=== PATIENT | male | born 1990 | race African-American/Black ===

== ENCOUNTER 2018-12-28 15:27 | Emergency (ER) | payer MEDICAID ==
--- NOTE | 2018-12-28 15:34 | EDPHY ---
H & P Time Seen by Provider: 12/28/18 15:30 HPI/ROS: CHIEF COMPLAINT: Altered mental status HISTORY OF PRESENT ILLNESS: Per EMS the patient's friends called because he was altered. He admits to drinking a pt of alcohol. His pre-hospital glucose was 122. Patient denies any medical complaints now although he is very slow to respond and appears lethargic. No history of trauma pre-hospital. Further history and review of systems unable on arrival because of the patient' s lethargy. PAST MEDICAL HISTORY: Schizophrenia Social history: Recent alcohol General Appearance: Alert and opens eyes spontaneously but slow to respond. Eyes: No scleral icterus. Pupils equal reactive extraocular motion intact. ENT, Mouth: No tongue laceration or abrasion. Respiratory: Normal respiratory effort, breath sounds equal, lungs are clear to auscultation. Cardiovascular: Regular rate and rhythm. Gastrointestinal: Abdomen is soft and non tender. Neurological: Spontaneous movement of all 4 extremities but limited verbal communication. Face symmetric. Skin: Warm and dry, no rashes. No external evidence of bruising or abrasion or laceration. Musculoskeletal: No neck stiffness. Psychiatric: Not agitated. Emergency Department course/MDM: Plan for labs to include ethanol and sodium, pre-hospital glucose was normal, serial examinations. Patient got diaphoretic and tachycardic was given 2 mg IV Ativan and normal saline hydration. Now more alert, able to answer questions, no medical complaints except for anxiety at this time. Admits to chronic benzodiazepine use. 2230: Heart rate 100, blood pressure 140 systolic, now speaking in full sentences. Signed out to Dr. Moseley plan for psychiatric evaluation. (Christian Monson) Constitutional: Initial Vital Signs Temperature (C) 36.9 C 12/28/18 15:40 Heart Rate 107 H 12/28/18 15:40 Respiratory Rate 16 12/28/18 15:40 Blood Pressure 154/112 H 12/28/18 15:40 O2 Sat (%) 95 12/28/18 15:40 O2 Delivery Mode Room Air O2 (L/minute) 2 Allergies/Adverse Reactions: No Known Allergies Allergy (Unverified 12/28/18 15:40) Medical Decision Making ED Course/Re-evaluation: 0610AM: No acute events overnight. Vital signs improved. Patient on [facility] History of he schizophrenia. Needs mental evaluation. Suicidal. On an [facility]. Signed over to Dr. Abrams. (Praful Moseley) I re-evaluated this patient this morning. This patient is not suicidal. This patient is here because he is having some withdrawal from Ativan. He is prescribed Ativan to help him with the tremors from his Haldol. Unfortunately he went to [facility] locally and they tried to charge him 228 dollars for all of his medicines. He does not have that kind of money. He does have Medicaid insurance through [facility]. Our case management has worked on this for several hours and we are able to override our local [employer] with the [facility] insurance. They will give him all of his prescriptions will cab him over there. Additionally we will give him a voucher then get back down to [facility]. He will follow up with their psychiatric department in his physician. He is not suicidal homicidal gravely disabled. (Nicolas Abrams) Differential Diagnosis: Differential diagnosis considered for altered mental status including but not limited to hypoglycemia, infectious process, electrolyte abnormality, head injury and intoxicants. (Christian Monson) Other Provider: 0828: Assessed patient. He denies any suicidal ideation. He says he came into the hospital due to tremors that he thinks is related to daily Ativan use. He says he was using Ativan to combat tremors he got from his Haldol injections, but ran out of his prescription. He tried to fill his script, but was unable to afford it. His last Ativan use was 1 week ago. He would like to return home. We will see how we can assist with obtaining his prescription and then discharge home. automotive service manager is working on getting patient down to [facility] where his insurance is. He has several other prescriptions he also needs to fill. ( Nicolas Abrams) - Data Points Laboratory Results: Laboratory Results 12/28/18 16:00 12/28/18 16:40 Medications Given: Discontinued Medications Sodium Chloride (Ns) 1,000 mls @ 0 mls/hr IV EDNOW ONE; Wide Open PRN Reason: Protocol Stop: 12/28/18 20:39 Last Admin: 12/28/18 20:46 Dose: 1,000 mls Sodium Chloride (Ns) 1,000 mls @ 0 mls/hr IV EDNOW ONE; Wide Open PRN Reason: Protocol Stop: 12/28/18 20:39 Last Admin: 12/28/18 20:46 Dose: 1,000 mls Lorazepam (Ativan Injection) 2 mg IVP EDNOW ONE Stop: 12/28/18 19:55 Last Admin: 12/28/18 19:58 Dose: 2 mg Lorazepam (Ativan Injection) 2 mg IVP EDNOW ONE Stop: 12/28/18 20:40 Last Admin: 12/28/18 20:47 Dose: 2 mg Departure - Departure Disposition: Home, Routine, Self-Care Clinical Impression: Alcohol intoxication Qualifiers: Complication of substance-induced condition: uncomplicated Qualified Code(s): F10.920 - Alcohol use, unspecified with intoxication, uncomplicated Schizophrenia Qualifiers: Schizophrenia type: unspecified Qualified Code(s): F20.9 - Schizophrenia, unspecified Condition: Good Instructions: Schizophrenia (ED), Alcohol Intoxication (ED) Additional Instructions: Case Management has assisted with having your medications filled at [facility] at [address]. Please go and pick these up today and take as prescribed. Please follow-up with [facility] and call their intake appointment line ([phone]) as soon as possible. Also speak to them about assisting you with establishing a Primary Care Provider. Once you are seen by a provider within the [facility] system, you should be able to get your next month's prescriptions filled through their outpatient pharmacy. You expressed that you would like to return to the [place] area and continue staying at the [facility]. Our Car Park Attendant has also provided you a regional bus pass so that you can get back to [place] safely. Follow up with resources provided. Return for worsening of condition. Referrals: [facility],. [Clinic] - As per Instructions
[2018-12-28 16:11] LABS: PLATELET COUNT 273 10^3/uL (150-400)
[2018-12-28] MEDS ORDERED: LORazepam 2 MG/ML INJ IVP ONE ×2 (19:54→20:39)
[2018-12-28] MEDS ORDERED: NS 1,000 ML IV ONE ×2 (20:38)
[2018-12-29 12:15] VITALS: BP 151/103
--- NOTE | 2018-12-29 17:31 | ASMTCMCOM ---
CM Note CM Note Notes: Pt presented to the ED via EMS for AMS, lethargy. Pt came from [facility] to [facility] long term. Pt stabilized and ready for discharge. CM requested to assist pt w/obtaining his Rxns that are ready to be picked up at [facility] at and . Pt apparently tried to pickling solution maker his Rxns but because his Medicaid is through [facility]'s system, the Rxns weren't being covered and pt couldn't afford them. CM called [facility] [phone] and they said they do not have the pt in their system but the pt was admitted to their inpatient psychiatric unit from 11/18-11/27/18 and discharged with filled Rxns including Trazodone, two different strengths of Haldol, Prozac and Cogentin. Pt was also recently a patient at [facility] on 12/04/18 but it is not clear when he was discharged. Pt states he was D/C'd from [facility] and transferred to [facility] in [place]. Pt states he was d/c'd from [facility] to [facility] to [facility] to complete [employer]. Pt was provided Rxns (Ativan 1mg BID, Loxapine 10mg BID, and Cyproheptadine 4mg DAILY) from Dr Merry Ho (from [facility]?) and he took them to the [facility] on and . Pt states he would overall like to return to [place] and continue staying at the [facility] long term. CM called [facility] to see if Rxns could be transferred from [facility] to them and pt could pick them up today; the thin film technician said they can't fill Rxns that are prescribed by a provider outside of the system, but [facility] could call their Medicaid Insurance line ([phone]) and get a one-time override to where the Rxns would get covered. HELEN called [facility] and spoke w/Yenni who said she will call and get the override this afternoon. HELEN provided pt with [facility] Intake # and a regional bus pass so he can return to [place] (per his request). Pt also aware to ask [facility] for assistance with getting established w/a PCP at [facility]. Pt states he will and is agreeable to discharge plan. Pt provided a Medicaid cab to [facility]. Followed up w/Yenni at [facility] and she was able to successfully get the override and pt picked up his medications. Pt states he's originally from [place] and came to [place] about 4-5 months ago. Pt's family is still in [place]. Pt appreciative, calm and pleasant. CM available for further assistance if needed. Date Signed: 12/29/2018 05:30 PM Electronically Signed By:Lulu Grey RN
== END 2018-12-29 12:39 | disposition home or self-care (01) ==
LOC: EDBD → EDUNIT#
DX: F10.920 Alcohol use, unspecified with intoxication, uncomplicated (principal); F20.9 Schizophrenia, unspecified; E86.9 Volume depletion, unspecified
CPT/HCPCS: 80305; 96374; G0480; J2060